=== PATIENT | female | born 1965 | race African-American/Black ===

== ENCOUNTER 2023-08-14 15:42 | Emergency (ER) | payer OTHER ==
[~2023-08-14] VITALS: Ht 175.3 cm; Wt 109.0 kg
[2023-08-14 15:48] VITALS: TEMP 98.5; O2SAT 97
[2023-08-14 16:09] LABS: BASOPHILS % 0.5 % (0.0-2.0); EOSINOPHILS % 10.9 % (0.0-5.0); HEMATOCRIT. 39.5 % (36.0-48.0); HEMOGLOBIN. 13.2 g/dL (12.0-16.0); LYMPHOCYTES % 19.8 % (20.0-50.0); MEAN CORPUSCULAR HEMOGLOBIN 27.7 pg (28.0-32.0); MEAN CORPUSCULAR HGB CONC 33.4 g/dL (31.0-37.0); MEAN CORPUSCULAR VOLUME 83.1 fL (81.0-99.0); MEAN PLATELET VOLUME 7.7 fl (7.4-10.4); MONOCYTES % 6.9 % (2.0-8.0); NEUTROPHILS % 61.9 % (40.0-76.0); PLATELET 296 x1000/uL (130-400); RED BLOOD CELL COUNT 4.76 mill/uL (4.2-5.4); RED CELL DISTRIBUTION WIDTH 14.6 % (11.6-14.6); WHITE BLOOD COUNT 9.7 x1000/uL (4.5-11.0)
[2023-08-14 16:14] LABS: CARBON DIOXIDE 23 mEq/L (21-32); CHLORIDE 107 mEq/L (98-107); POTASSIUM 3.4 mEq/L (3.5-5.1); SODIUM 139 mEq/L (136-145)
[2023-08-14 16:15] LABS: CALCIUM 9.8 mg/dL (8.7-10.4)
[2023-08-14 16:19] LABS: CREATININE 0.9 mg/dL (0.6-1.0)
[2023-08-14 16:20] LABS: GLUCOSE 102 mg/dL (70-105); UREA NITROGEN BLOOD 11 mg/dL (9-23)
[2023-08-14 16:21] LABS: ALANINE AMINOTRANSFERASE 12 IU/L (10-49)
[2023-08-14 16:22] LABS: ALBUMIN 4.3 g/dL (3.2-4.8); ASPARTATE AMINOTRANSFERASE 17 IU/L (<34); BILIRUBIN DIRECT 0.2 mg/dL (<=3.0); BILIRUBIN TOTAL 0.5 mg/dL (0.1-1.0); PROTEIN TOTAL 7.4 g/dL (6.0-8.3); TROPONIN I HIGH SENSITIVITY < 4 ng/L (3.0-34)
[2023-08-14 20:00] VITALS: BP 129/73; PULSE 105; RESP 18
[2023-08-14] MEDS: ONDANSETRON HCL 4MG/2ML INJ IV ONE (20:00)
[2023-08-14] MEDS: MORPHINE SULFATE 4 MG/ML INJ (FOR IV/IM USE) IV ONE (20:00)
[2023-08-15] MEDS ORDERED: TOPUD MT (01:07)
[2023-08-15] MEDS ORDERED: CIPR-263 MT (01:07)
[2023-08-15] MEDS ORDERED: IBUP-1525 MT (01:07)
[2023-08-15] MEDS ORDERED: P50 MT (01:07)
== END 2023-08-15 01:21 | disposition left against medical advice (07) ==
LOC: ER 15:42
DX: R10.13 Epigastric pain (principal); Z85.9 Personal history of malignant neoplasm, unspecified; K59.00 Constipation, unspecified
CPT/HCPCS: 99285; 74176; 96374; 96375; 80076; 80048; 85025; 84484; 36415; 93005; J2405; J2270

== ENCOUNTER 2024-05-18 11:42 | Emergency (ER) | payer MEDICAID, OTHER ==
[~2024-05-18] VITALS: Ht 180.3 cm; Wt 253.0 kg
[~2024-05-18 11:42] MED LIST: CIPR-263 MT; IBUP-1525 MT; P50 MT; TOPUD MT
[2024-05-18 11:44] VITALS: O2SAT 100
[2024-05-18 11:48] VITALS: BP 140/96; PULSE 102; RESP 16; TEMP 36.8; O2SAT 97
[2024-05-18] MEDS ORDERED: CLOT15CR27 TP (12:37)
[2024-05-18] MEDS ORDERED: DIPH28.33 TP (12:37)
== END 2024-05-18 12:47 | disposition home or self-care (01) ==
LOC: ER 11:42
DX: L30.4 Erythema intertrigo (principal); Z79.899 Other long term (current) drug therapy
CPT/HCPCS: 99282